=== PATIENT | male | born 1970 | race Caucasian/White ===

== ENCOUNTER 2024-10-19 17:43 | Emergency (ER) | payer OTHER ==
[~2024-10-19] VITALS: Ht 185.4 cm; Wt 120.4 kg
[2024-10-19 17:50] VITALS: BP 155/87; PULSE 78; RESP 19; TEMP 98.2; O2SAT 96
[2024-10-19 19:49] LABS: BASOPHILS % (AUTO) 0.2 % (0.0-2.0); HEMATOCRIT 44.4 % (41-53); HEMOGLOBIN 15.1 g/dL (13.5-17.5); LYMPHOCYTES # (AUTO) 1.6 K/uL (1.0-4.8); LYMPHOCYTES % (AUTO) 13.3 % (22.0-44.0); MEAN CORPUSCULAR HEMOGLOBIN 29.8 pg (26.0-34.0); MEAN CORPUSCULAR VOLUME 88 fL (80-100); MONOCYTES # (AUTO) 0.9 K/uL (0.1-1.0); MONOCYTES % (AUTO) 7.2 % (2.0-9.0); NEUTROPHILS # (AUTO) 9.6 K/uL (1.8-7.7); NEUTROPHILS % (AUTO) 78.3 % (40.0-70.0); PLATELET COUNT (AUTO) 242 K/uL (150-450); RED BLOOD CELL COUNT(AUTO) 5.06 MIL/uL (4.50-5.90); WHITE BLOOD COUNT (AUTO) 12.3 K/uL (4.5-11.0)
[2024-10-19 20:00] LABS: ANION GAP 6 mmol/L (8-16); CALCIUM, TOTAL 9.6 mg/dL (8.8-10.5); CARBON DIOXIDE 30 mmol/L (22-29); CHLORIDE 103 mmol/L (98-107); CREATININE 0.79 mg/dL (0.60-1.30); GLOMERULAR FILTR. RATE CALC > 60 mL/min (>60); GLUCOSE,RANDOM 88 mg/dL (70-110); POTASSIUM 4.3 mmol/L (3.5-5.1); SODIUM SERUM 139 mmol/L (136-145); UREA NITROGEN, BLOOD 20 mg/dL (7-18)
[2024-10-19 20:09] LABS: TROPONIN I-HIGH SENSITIVITY 5 ng/L (<76)
== END 2024-10-19 23:03 | disposition home or self-care (01) ==
LOC: EMS 17:43
DX: M79.601 Pain in right arm (principal)
CPT/HCPCS: 80048; 84484; 85025; 93005; 99284